=== PATIENT | female | born 1995 | race Caucasian/White ===

== ENCOUNTER 2023-07-04 15:36 | Emergency (ER) | payer OTHER ==
[~2023-07-04] VITALS: Ht 167.6 cm; Wt 49.9 kg
[2023-07-04 16:33] VITALS: BP 104/74; TEMP 99; O2SAT 98
[2023-07-04] MEDS ORDERED: IV NS 0.9% 1,000 ML BAG IV ONE (17:30)
[2023-07-04 18:21] LABS: BASOPHILS # (AUTO) 0.1 K/uL (0.0-0.2); EOSINOPHILS % (AUTO) 0.2 % (0.0-6.0); HEMATOCRIT 45 % (33-45); HEMOGLOBIN 14.7 g/dL (11.5-14.8); LYMPHOCYTES % (AUTO) 22.1 % (20.0-44.0); MEAN CORPUSCULAR HEMOGLOBIN 30 PG (26.0-33.0); MEAN CORPUSCULAR HGB CONC 33 g/dl (31.0-36.0); MEAN CORPUSCULAR VOLUME 92 fL (82-100); MONOCYTES # (AUTO) 0.2 K/uL (0.1-1.30); MONOCYTES % (AUTO) 5.2 % (2.0-12.0); NEUTROPHILS # (AUTO) 3.2 K/uL (1.8-8.9); NEUTROPHILS % (AUTO) 70.5 % (43.0-81.0); PLATELET COUNT (AUTO) 331 K/uL (150-450); RED BLOOD CELL COUNT(AUTO) 4.92 MIL/uL (4.0-5.2); RED CELL DISTRIBUTION WIDTH 14.8 % (11.5-15.0); WHITE BLOOD COUNT (AUTO) 4.5 K/uL (4.3-11.0)
[2023-07-04 18:29] LABS: CALCIUM, SERUM 8.8 mg/dL (8.5-10.1); CARBON DIOXIDE 30 mmol/L (21-32); CHLORIDE 105 mmol/L (98-107); CREATININE 0.9 mg/dL (0.6-1.3); GLUCOSE 92 mg/dL (74-106); POTASSIUM 3.6 mmol/L (3.5-5.1); SODIUM SERUM 147 mmol/L (136-145); UREA NITROGEN, BLOOD 8 mg/dL (7-18)
[2023-07-04 18:38] LABS: ALANINE AMINOTRANSFERASE 25 U/L (12-78); ALCOHOL, BLOOD 344 mg/dL (0-10); ALKALINE PHOSPHATASE 58 U/L (46-116); ASPARTATE AMINOTRANSFERASE 36 U/L (15-37); BILIRUBIN,DIRECT 0.1 mg/dL (0.0-0.2); BILIRUBIN,TOTAL 0.4 mg/dL (0.2-1.0); TOTAL PROTEIN, SERUM 8.2 g/dL (6.4-8.2)
[2023-07-04 18:39] LABS: ACETAMINOPHEN <10 ug/ml (10-30); SALICYLATE < 2.3 mg/dL (2.8-20.0)
== END 2023-07-04 19:49 | disposition left against medical advice (07) ==
LOC: ER 15:59
DX: F10.129 Alcohol abuse with intoxication, unspecified (principal); Z88.0 Allergy status to penicillin; Z91.040 Latex allergy status; Y90.8 Blood alcohol level of 240 mg/100 ml or more
CPT/HCPCS: 99284; 96360; 93005; 85025; 80048; 80076; 36415; 80143; 80320; J7030; G0480

== ENCOUNTER 2024-05-06 14:11 | Emergency (ER) | payer OTHER ==
[~2024-05-06] VITALS: Ht 170.2 cm; Wt 65.8 kg
[2024-05-06 15:47] LABS: APPEARANCE,URINE CLEAR (CLEAR); BILIRUBIN,URINE NEGATIVE (NEGATIVE); BLOOD, URINE NEGATIVE Ery/uL (NEGATIVE); COLOR,URINE YELLOW (YELLOW); KETONES,URINE NEGATIVE (NEGATIVE); LEUKOCYTE ESTERASE ,URINE TRACE (NEGATIVE); NITRITE, URINE POSITIVE (NEGATIVE); PH,URINE 7.5 (5.0-8.0); PROTEIN,URINE NEGATIVE (NEGATIVE); UGLUCOSE NEGATIVE (NEGATIVE); UROBILINOGEN,URINE 0.2 EU/dL (0.2)
[2024-05-06 15:51] LABS: PREGNANCY TEST URINE QUAL NEGATIVE (NEGATIVE)
[2024-05-06 15:57] LABS: ADD URINE CULTURE YES; BACTERIA,URINE 4+ /HPF (None Seen); RBC,URINE 0-2 /HPF (0-2); SQUAMOUS EPITHELIAL CELL,UR 0-2 /HPF (None Seen)
[2024-05-06] MEDS ORDERED: NITR100C PO (17:50)
[2024-05-06] MEDS ORDERED: NITROFURANTOIN/MONOHYDRATE MACROCRYSTALS 100 MG CAPSULE ONE (17:54)
[2024-05-06] MEDS: NITROFURANTOIN/MONOHYDRATE MACROCRYSTALS 100 MG CAPSULE PO ONE (17:59)
[2024-05-06 18:31] VITALS: BP 110/76; TEMP 98.7; O2SAT 98
== END 2024-05-06 18:31 | disposition home or self-care (01) ==
LOC: ER 14:17
DX: F10.129 Alcohol abuse with intoxication, unspecified (principal); N39.0 Urinary tract infection, site not specified; R10.2 Pelvic and perineal pain; Z88.0 Allergy status to penicillin; Z91.040 Latex allergy status
CPT/HCPCS: 81001; 82962-TC; 84703-TC; 87086-TC